=== PATIENT | female | born 1975 | race Caucasian/White ===

== ENCOUNTER 2019-09-17 17:12 | Inpatient (IN) | payer MEDICAID, SELFPAY ==
[2019-09-17 17:16] VITALS: BP 131/75; PULSE 90; RESP 16; TEMP 36.8; O2SAT 100; BMI 47.0
--- NOTE | 2019-09-17 17:43 | W.ED.PSYCH ---
HPI - Psych General: Chief Complaint: Psychiatric Symptoms Stated Complaint: suicide Time Seen by Provider: 09/17/19 17:43 Source: patient History of Present Illness: HPI Narrative: 44 yo Female presents to ED with complaint of psychiatric symptoms and suicidal ideation. MD complaint: suicidal ideation PFSH ED PFSH: Statuses (acute, chronic, etc) shown below reflect problem list status as previously entered and may not be historically accurate Social History Smoking and tobacco status: current every day smoker Discharge Plan Discharge Prescriptions: No Action No Known Home Medications RF: 0 Coding Level of Care Code ED Geological Aide for Cynthia Cooper
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
[2019-09-17 17:59] LABS: Basophils % 0.4 %; Eosinophils # 0.3 10^3/uL (0.0-0.8); Eosinophils % 2.8 %; Hematocrit 38.9 % (37.0-47.0); Hemoglobin 12.4 g/dL (11.5-15.3); Lymphocytes # 3.8 10^3/uL (0.8-4.8); Lymphocytes % 40.4 %; Mean Corpuscular HGB Conc 31.9 g/dL (30.0-36.0); Mean Corpuscular Hemoglobin 29.4 pg (28.0-34.0); Mean Corpuscular Volume 92.2 fL (81-99); Mean Platelet Volume 9.5 fL (7.4-10.4); Monocytes # 0.5 10^3/uL (0.2-0.9); Monocytes % 5.1 %; Neutrophils # 4.8 10^3/uL (1.8-7.7); Neutrophils % 50.8 %; Nucleated Red Blood Cells % 0 %; Platelet Count 315 10^3/cmm (130-400); Red Blood Count 4.22 10^6/uL (4.1-5.3); Red Cell Distribution Width 13.7 % (12.1-15.1); White Blood Count 9.5 10^3/uL (4.0-10.0)
[2019-09-17 18:35] LABS: Alanine Aminotransferase 17 U/L (0-33); Albumin Level 4.2 g/dL (3.5-5.2); Alkaline Phosphatase 93 IU/L (35-105); Anion Gap 13.6 (5-19); Aspartate Amino Transferase 24 U/L (0-32); Blood Urea Nitrogen 11 mg/dL (6-20); Calcium 9.5 mg/Dl (8.6-10.0); Carbon Dioxide 26 mmol/L (22-29); Chloride 98 mmol/L (98-107); Globulin 3.4 g/dL (1.3-4.6); Glomerular Filtration Rate 109.6 mL/min (90-130); Glucose 118 mg/dL (74-109); Potassium 3.6 mmol/L (3.5-5.1); Salicylate 1.1 mg/dL (3-10); Sodium 134 mmol/L (136-145); Thyroid Stimulating Hormone 1.28 uIU/mL (0.27-4.20); Total Bilirubin 0.3 mg/dL (0.15-1.2); Total Protein 7.6 g/dL (6.6-8.7)
[2019-09-17 18:39] LABS: Acetaminophen < 5.0 ug/mL (10-30); Alcohol Level < 10 mg/dL (0-10)
[2019-09-17 18:44] LABS: HCG Qualitative Urine. Negative (Negative)
[2019-09-17 18:58] LABS: Bilirubin Urine 1+ (NEGATIVE); Blood Urine 2+ (Negative); Glucose Urine UA Norm (Normal); Ketones Urine 1+ (Negative); Nitrate Urine Negative (Negative); Protein Urine Trace (Negative); Specific Gravity, Urine 1.025 (1.005-1.030); Sulfosalicylic Acid Urine Negative; Urine Appearance Cloudy (CLEAR); Urine Color Yellow (Yellow); pH Urine 5 (5-7)
[2019-09-17 18:59] LABS: Add Urine Culture? No; Add Urine Microscopic? YES; Bacteria Urine 1+; Leukocyte Esterase Urine Negative (Negative); Mucus Urine 1+; RBC Urine 0-4 /hpf (0-2); Squamous Epithelial Cell Urine 25-40 (0-5); Urobilinogen Urine 1 mg/dL (Negative)
[2019-09-17 19:06] LABS: Amphetamines Screen Urine Negative (Negative); Barbiturates Screen Urine Negative (Negative); Benzodiazepines Screen Urine Negative (Negative); Cocaine Screen Urine Negative (Negative); Opiate Screen Urine Negative (Negative); PCP Screen Urine Negative (Negative); THC Screen Urine Positive (Negative)
[2019-09-17 19:39] VITALS: BP 128/88; PULSE 61; RESP 18; O2SAT 99
[2019-09-17 20:50] VITALS: BP 107/86; PULSE 60; RESP 17; TEMP 36.7; O2SAT 100
[2019-09-17 20:58] VITALS: BP 124/85; PULSE 67; RESP 21; TEMP 36.9; O2SAT 98
[2019-09-17 21:32] VITALS: BP 124/85; PULSE 67; RESP 21; TEMP 36.9; O2SAT 98
[2019-09-18 06:00] VITALS: BP 101/57; PULSE 65; RESP 18; TEMP 36.8; O2SAT 97
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
[2019-09-18 12:43] VITALS: BP 122/83; PULSE 60; RESP 19; TEMP 36.8; O2SAT 97
[2019-09-18] MEDS: fluoxetine 20 mg Capsule PO (15:10)
[2019-09-18] MEDS: lamoTRIgine 25 mg Tablet PO (15:10)
[2019-09-18 19:39] VITALS: BP 110/68; PULSE 55; RESP 20; TEMP 36.6; O2SAT 100
[2019-09-18] MEDS: nicotine 21 mg Patch 1 PATCH TRANSDERMA (20:49)
[2019-09-19 06:00] VITALS: BP 143/82; PULSE 80; RESP 21; TEMP 36.5; O2SAT 97
[2019-09-19] MEDS: fluoxetine 20 mg Capsule PO (09:07)
[2019-09-19] MEDS: lamoTRIgine 25 mg Tablet PO (09:07)
--- NOTE | 2019-09-19 13:26 | P.CONIM_ITS ---
Providers/Reason For Consult Consulting Physican/Specialty*: General medical service Reason for Consult*: Goiter Attending Physician: Daren Bosch MD Primary Care Provider: Hanna Church History of Present Illness History of Present Illness Misa Cohen is a 44 year old female who was admitted to the [facility] unit for suicidal ideation. General medical team was consulted for goiters thyroid. Patient states that she has a history of enlarged thyroid, states that she had a work-up at [facility], this was told that she had a large right thyroid, they stated that they would monitor it, and if it enlarges they would advocate for a thyroidectomy. Patient denies any chest pain or palpitations. Denies any skin changes. Denies any diarrhea or constipation. Denies any hair loss. Denies any edema. Denies any vision changes. Denies any weight changes. Denies any personal family history of hypo-or hyperthyroidism. Denies any personal history of diabetes, hypertension, hyperlipidemia, CAD, strokes. Review of Systems Const: Denies: fever or chills Card: Denies: chest pain, palpitations, irregular heart rhythm, lightheadedness or syncope Resp: Denies: shortness of breath or productive cough GI: Denies: abdominal pain, nausea, vomiting, diarrhea or constipation : Denies: flank pain, difficulty urinating, urinary frequency or urinary urgency Musc: Denies: neck pain or back pain Skin/Breast: Denies: rash Neuro: Denies: headache, numbness in extremities or weakness in extremities Psych: Reports: depression; Denies: anxiety Endo: Denies: excessive urination or excessive thirst Meds/Allergies Home Medications and Allergies Home Medications Medication Instructions Recorded Confirmed Type Anti-Diarrheal (loperamide) See Rx Instructions .ROUTE .COMPLEX 09/17/19 09/17/19 History albuterol sulfate 2 puff INHALATION Q4H PRN 09/17/19 09/17/19 History ibuprofen 800 mg PO TID PRN 09/17/19 09/17/19 History Allergies Allergy/AdvReac Type Severity Reaction Status Date / Time oxycodone [From OxyContin] Allergy ADR-Itching Verified 09/17/19 17:28 Current Medications Current Medications Generic Name Dose Route Start Last Admin Trade Name Freq PRN Reason Stop Dose Admin Fluoxetine HCl 20 mg 09/18/19 15:00 09/19/19 09:07 Prozac PO 20 mg DAILY JOE Administration Lamotrigine 25 mg 09/18/19 15:00 09/19/19 09:07 Lamictal PO 25 mg DAILY JOE Administration Nicotine 1 patch 09/17/19 20:58 09/18/19 20:49 Nicoderm 21 Mg Patch TRANSDERMA 1 patch DAILY PRN Administration NICOTINE WITHDRAWAL PFSH Acute PFSH: Statuses (acute, chronic, etc) shown below reflect problem list status as previously entered and may not be historically accurate Medical History (Updated 09/19/19 @ 13:33 by Javier Odonnell MD) Goiter diffuse (Acute) Surgical History (Updated 09/19/19 @ 13:30 by Javier Odonnell MD) History of partial hysterectomy (Acute) Family History (Updated 09/19/19 @ 13:30 by Javier Odonnell MD) Other Diabetes Social History (Updated 09/19/19 @ 13:31 by Javier Odonnell MD) Smoking and tobacco status: current every day smoker Alcohol intake: current Substance/Drug Use: never Vitals/I&O/Wt Last Vital Signs Temp 97.7 F 09/19/19 06:00 Pulse 80 09/19/19 06:00 Resp 21 H 09/19/19 06:00 BP 143/82 09/19/19 06:00 Pulse Ox 97 09/19/19 06:00 Weight last 48 hrs Weight 115.122 kg Weight 115.122 kg Weight 115.122 kg Weight 136.078 kg Physical Exam Const: COMMON NORMALS: no apparent distress, oriented x3 and healthy appearing HENMT: COMMON NORMALS: normocephalic HEAD & SCALP: normocephalic Eye: COMMON NORMALS: PERRL and EOMs intact bilaterally PUPIL: Yes PERRL Neck/C-Spine: COMMON NORMALS: no JVD THYROID: diffusely enlarged (Right thyroid is more diffusely larger than the left), no nodules, nontender and no warm Lymph: LYMPHATIC: no lymphadenopathy noted Chest: COMMONS NORMALS: inspection of chest normal Resp: COMMON NORMALS: normal respiratory effort, no retractions, no use of accessory muscles and clear to auscultation bilaterally AUSCULTATION: clear to auscultation bilaterally Cardio: COMMON NORMALS: no JVD, S1 normal heart sound and S2 normal heart sound HEART SOUNDS: S1 normal and S2 normal GI: COMMON NORMALS: normal to inspection, nondistended, normoactive bowel sounds, soft to palpation, non-tender and no hepatosplenomegaly PALPATION: Yes soft and Yes no hepatosplenomegaly : COMMON NORMALS: Yes no CVA tenderness BLADDER/KIDNEY EXAM: Yes no CVA tenderness Back/Pelvis: COMMON NORMALS: no CVA tenderness Extremity: COMMON NORMALS: normal to inspection, normal capillary refill, no clubbing, cyanosis or edema and no pedal edema Neuro: COMMON NORMALS: oriented x3, CN's II-XII intact bilaterally and no focal motor deficits Psych: COMMON NORMALS: mental status grossly normal, thought process normal, cooperative, affect normal and activity/motor behavior normal THOUGHT PROCESS: normal thought process Skin: COMMON NORMALS: no rashes or lesions noted GENERAL SKIN EXAM: no rashes or lesions noted A&P Assessment and plan (1) Cluster B personality disorder in adult: Status: Acute Code(s): F60.9 - Personality disorder, unspecified (2) Bipolar affective, depress, unspec: Status: Acute Code(s): F31.30 - Bipolar disorder, current episode depressed, mild or moderate severity, unspecified (3) Adjustment disorder with mixed disturbance of emotions and conduct: Status: Acute Code(s): F43.25 - Adjustment disorder with mixed disturbance of emotions and conduct (4) Suicide attempt: Status: Acute Code(s): T14.91XA - Suicide attempt, initial encounter (5) Suicidal ideation: Status: Acute Code(s): R45.851 - Suicidal ideations (6) Goiter diffuse: -We will do thyroid ultrasound, TSH, thyroid studies Status: Acute Code(s): E04.9 - Nontoxic goiter, unspecified Consult Attestations Medical Necessity Statement: Patient requires hospitalization, for suicidal ideation, Coding Level of Care Code Acute Conventional Mortgage Underwriter for Chg Fwd Diagnoses Cluster B personality disorder in adult F60.9 Bipolar affective, depress, unspec F31.30 Adjustment disorder with mixed disturbance of emotions and conduct F43.25 Suicide attempt T14.91XA Suicidal ideation R45.851 Goiter diffuse E04.9
--- NOTE | 2019-09-19 13:34 | USR_ITS ---
PROCEDURE INFORMATION: Exam: US Soft Tissue Head and Neck, Soft Tissue Exam date and time: 09/19/2019 3:02 PM Age: 44 years old Clinical indication: Condition or disease; Thyroid disorder; Goiter, non-toxic; Type not specified; Additional info: Goiter thyroid TECHNIQUE: Imaging protocol: Real-time ultrasound scan of the head and neck with image documentation. Exam focused on the soft tissue in the region of clinical concern. COMPARISON: US thyroid [id number] 10/14/2016 3:26 PM FINDINGS: Right thyroid lobe: The right thyroid lobe measures 1.7 x 5.2 x 1.7 cm. There is a 5.9 x 4.6 x 5.0 mm mixed echogenicity nodule in the mid right thyroid lobe. This nodular density does appear smaller than the prior exam where it measured 6.8 x 8.0 x 7.6 mm. This nodule is almost completely solid. It is hyperechoic and wider than tall. Its margins are ill-defined. A few small microcalcifications are noted in the nodule. This right thyroid nodule TIRADS category 4 moderately suspicious nodule. Otherwise the remainder of the thyroid gland is mildly heterogeneous but there are no new or enlarging nodules. No fluid collection in the soft tissues. No adenopathy. Left thyroid lobe: The left thyroid lobe measures 1.6 x 4.5 x 2.0 cm. There is a 7.6 x 3.6 x 5.1 mm hyperechoic nodule in the left thyroid lobe. Is unchanged in size as compared to the prior exam where it measured 7.3 x 2.9 x 5.5 mm. This left thyroid nodule is solid and hypoechoic. It is wider than tall. It is smoothly marginated. No calcifications are identified. This nodule in the mid left thyroid lobe is a TIRADS category 3 nodule which is mildly suspicious. Follow-up exam in 3 years and 5 years is recommended. Isthmus: The thyroid isthmus measures 2.3 mm and is unremarkable. Lymph nodes: See Right Thyroid Lobe Finding. Soft tissues: See Right Thyroid Lobe Finding. US/US thyroid [id number] IMPRESSION: 1. There is a slightly smaller right thyroid nodule is a TIRADS category 4 moderately suspicious nodule. Follow-up ultrasound at 2, 3 and 5 years is recommended. 2. There is a unchanged size nodule in the mid left thyroid lobe is a TIRADS category 3 nodule which is mildly suspicious. Follow-up exam in 3 years and 5 years is recommended. 3. No new or enlarging nodule.
[2019-09-19 13:49] VITALS: BP 126/87; PULSE 99; RESP 20; TEMP 36.8; O2SAT 98
[2019-09-19 15:12] LABS: Free T4 Free Thyroxine 1.35 ng/dL (0.82-1.77); Thyroid Stimulating Hormone 0.63 uIU/mL (0.27-4.20)
--- NOTE | 2019-09-19 16:33 | PM.NPN ---
Subjective NPU Subjective: Interval history: December presents today reporting that she is feeling better on the medication. Her daughters came and visited her which made her feel really happy. She is starting to feel optimistic about coming to the unit and that it was the best decision. We reviewed the plan for titrating her Lamictal including the risk for Ashley-Cristian syndrome we discussed the risks benefits alternatives of proceeding with the medication as discussed and she understood and agreed to proceed as is documented in this note. Mental Status Exam MSE Comments: This is an obese versus morbidly obese white female with adequate dressing, grooming and contact with poor dentition. Cooperative with exam in mild distress. Speech was decreased rate and volume. Mood described as better, affect subdued. Thought process organized. Thought content: Patient denied any suicidal or homicidal ideation, there were no delusions reported noted, she denied any auditory or visual hallucinations. Attention and concentration were intact and memory appeared reliable but none were formally tested. She is alert and oriented ?3. Insight and judgment are limited. Vitals/I&O/Wt Last Vital Signs Temp 98.2 F 09/19/19 13:49 Pulse 99 09/19/19 13:49 Resp 20 H 09/19/19 13:49 BP 126/87 09/19/19 13:49 Pulse Ox 98 09/19/19 13:49 Weight last 48 hrs Weight 115.122 kg Weight 115.122 kg Weight 115.122 kg Weight 136.078 kg A&P Additional A&P Information Additional A&P Information: This is a 44-year-old white female with a history of untreated mood disorder who presents after a significant relational events with a likely reactive response with a history of possible bipolar disorder, cluster B traits, and a medical comorbidity of thyroid disease. 1. Continue current medication. 2. Encourage individual group and milieu therapy. 3. Continue every 15 minute checks for safety. 4. Work with social work to get her reconnected to outpatient services. Involuntary Hold Information 96 Hour Hold: 96 Hour Involuntary Admission: No Attestations NPU Medical Necessity Statement*: Inpatient hospitalization is medically necessary and the clinically appropriate intervention at this time. We will initiate and monitor medications as indicated and titrate to effect. Likely length of stay 1-3 days. Coding Level of Care Code Acute Biodiesel Plant Manager for Cynthia Cooper
[2019-09-19 20:40] VITALS: BP 121/84; PULSE 69; RESP 19; TEMP 36.8; O2SAT 98
[2019-09-19] MEDS: trazodone 50 mg Tablet PO (21:13)
[2019-09-20 05:59] VITALS: BP 169/102; PULSE 59; RESP 20; TEMP 36.4; O2SAT 97
[2019-09-20] MEDS: acetaminophen 325 mg Tablet 650 MG PO (06:18)
[2019-09-20] MEDS: lamoTRIgine 25 mg Tablet PO (09:06)
[2019-09-20] MEDS: fluoxetine 20 mg Capsule PO (09:06)
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
[2019-09-20 13:54] VITALS: BP 107/86; PULSE 59; RESP 20; TEMP 36.4; O2SAT 97
--- NOTE | 2019-09-22 16:13 | PC.SOCIAL ---
Per Dr Odonnell patient needs referral to ENT for Thyroid nodules. Sent referral to Dr Perkins office. Called patient and was not able to reach her on the numbers listed on demographic sheet but contact gave the number [phone]. Called this number and updated patient about referral and they will be calling her. She was agreeable that the number above be given to the clinic. No questions voiced at the time of call.
== END 2019-09-20 14:12 | disposition home or self-care (01) | DRG 882 ==
LOC: ER 18:59 → NP 20:32
PROVIDERS: Family Medicine; Admitting Provider Psychiatry & Neurology Psychiatry; Emergency Provider Physician Assistant; Family Provider Nurse Practitioner Family; PCP Nurse Practitioner; Visit Provider Psychiatry & Neurology Psychiatry
DX: F43.25 Adjustment disorder with mixed disturbance of emotions and conduct (principal); R45.851 Suicidal ideations; F31.30 Bipolar disorder, current episode depressed, mild or moderate severity, unspecified; F17.210 Nicotine dependence, cigarettes, uncomplicated; Z91.5 Personal history of self-harm; E04.9 Nontoxic goiter, unspecified
CPT/HCPCS: 36415; 76536; 80053; 80306; 80307; 81003; 81025; 84439; 84443; 84481; 85025; 99284

== ENCOUNTER → 2019-10-18 14:11 | Outpatient (BNVA) | payer MEDICAID, SELFPAY | PROVIDERS: Family Provider Nurse Practitioner Family; PCP Nurse Practitioner; Visit Provider Otolaryngology | DX: E04.1 Nontoxic single thyroid nodule (principal); R49.0 Dysphonia; R13.10 Dysphagia, unspecified; F17.210 Nicotine dependence, cigarettes, uncomplicated | CPT/HCPCS: 99203; 99214 ==

== ENCOUNTER → 2019-10-20 15:19 | Outpatient (BNVA) | payer MEDICAID, SELFPAY | PROVIDERS: Family Provider Nurse Practitioner Family; PCP Nurse Practitioner; Visit Provider Nurse Practitioner Family | DX: Z23 Encounter for immunization (principal); E04.9 Nontoxic goiter, unspecified; Z13.6 Encounter for screening for cardiovascular disorders; F41.9 Anxiety disorder, unspecified; M25.522 Pain in left elbow; F17.200 Nicotine dependence, unspecified, uncomplicated; J98.01 Acute bronchospasm; H65.193 Other acute nonsuppurative otitis media, bilateral; F32.9 Major depressive disorder, single episode, unspecified; H65.93 Unspecified nonsuppurative otitis media, bilateral | CPT/HCPCS: 80053; 80061; 84443; 85025 ==

== ENCOUNTER → 2019-10-29 09:13 | Outpatient (BNVA) | payer MEDICAID, SELFPAY | PROVIDERS: Family Provider Nurse Practitioner Family; PCP Nurse Practitioner; Visit Provider Otolaryngology | DX: E04.9 Nontoxic goiter, unspecified (principal); E04.1 Nontoxic single thyroid nodule; F17.210 Nicotine dependence, cigarettes, uncomplicated | CPT/HCPCS: 99213; 99214 ==

== ENCOUNTER 2019-11-17 08:15 | Day surgery (SDC) | payer MEDICAID, SELFPAY ==
[2019-11-16 10:35] VITALS: BMI 36.6
[2019-11-17] VITALS (11 sets, daily range): BP systolic 105–146; BP diastolic 59–87; PULSE 62–98; RESP 10–20; TEMP 36.3–36.9; O2SAT 94–97
--- NOTE | 2019-11-17 09:47 | P.ANESASSM_ITS ---
Pre-Anesthetic Assessment Pre-Anesthetic Assessment: Height/Weight: Height 1.7 m Weight 106.141 kg Temp Pulse Resp BP Pulse Ox 97.3 F L 62 18 146/77 97 11/17/19 09:43 11/17/19 09:43 11/17/19 09:43 11/17/19 09:43 11/17/19 09:43 Preop Diagnosis: thyroid mass Proposed Procedure: Operation Date: 11/17/19 10:15 Proposed Procedures p Rt thyroid lobectomy 15577 E04.9/E04.1(Right) - Nithin Perkins MD Familial anesthetic complications: None Was Beta Dania taken within 24 hours: N/A Last intake: Intake Last Liquid Date 11/16/19 Last Liquid Time 23:30 Last Solid Date 11/16/19 Last Solid Time 23:30 Social: Social History: Tobacco and No alcohol Packs per day: 1.5 ppd Exam: Pre-Anes Outpt Exam: alert, oriented x 3, clear to auscultation bilaterally and regular rate & rhythm Airway: Cervical ROM: WNL MP: 1 Additional comments: edentulous Pulmonary: Comments: hx of bronchitis - last time a couple months ago allergies CV/HEM: CV/HEM: HTN : : None reported Hepatic: Hepatic: None reported GI: GI: GERD Metabolic: Metabolic: Thyroid Musc/skel: Musc/skel: Fibromyalgia Neuropsych: Neuropsych: None reported Anesthetic Plan: ASA status: 2 Anesthesia: General Risk of > 500 ml blood loss (7ml/kg in children): No PFSH Anesthesia PFSH: Medical History Anxiety and depression Goiter diffuse Smoker Thyroid Nodule Surgical History (Updated 11/16/19 @ 10:31 by Katelyn L [employer]) History of partial hysterectomy Family History (Updated 10/29/19 @ 09:32 by Marilyn Green LPN) Other Cancer Diabetes Social History (Updated 11/16/19 @ 10:32 by Katelyn Russell) Smoking and tobacco status: current every day smoker Alcohol intake: current Housing: Manufactured/Mobile home Marital status: Number of children: 2 Number of grandchildren: 1 Highest education level completed: 8th Grade service: No Current occupational status: disabled History of recent travel: No Data Anesthesia Cardiac Studies: No Data to Display
[2019-11-17] MEDS: sodium chloride 0.9% 1,000 ML 30 ML IV (09:55)
--- NOTE | 2019-11-17 11:02 | W.PM.OPSUD ---
Surgery/Procedure H&P Update DATE OF PROCEDURE: November 17, 2019 DATE H&P PERFORMED: 10/29/19 H&P UPDATE INFORMATION: I have reviewed H&P completed within last 30 days, I have examined patient prior to procedure and No changes to prior documentation PREOP DIAGNOSIS: thyroid mass PLANNED PROCEDURE: Operation Date: 11/17/19 10:15 Proposed Procedures p Rt thyroid lobectomy 34591 E04.9/E04.1(Right) - Nithin Perkins MD
--- NOTE | 2019-11-17 11:54 | P.OP_ITS ---
Operative Report Date of procedure: November 17, 2019 Pre-op Diagnosis: thyroid mass Post-op diagnosis: same Procedure Done: Right thyroid lobectomy Specimens removed/disposition: Right thyroid lobe Surgeon: Nithin Perkins Anesthesia: General Complications: none Condition: stable Disposition: PACU Brief History: Misa is a 44-year-old female with a thyroid nodule that upon ultrasound had a right TIRADS category 4 nodule. I discussed the options with the patient and she wishes to proceed with surgery. Procedure: The patient was taken to the operating room and under satisfactory general endotracheal anesthesia the neck was prepped draped and injected. A 2 cm incision was made in a relaxed skin tension line at the level of the isthmus. Dissection was carried down through the anterior layer of deep cervical fascia identifying and retracting the strap musculature laterally. The right thyroid lobe was identified. Inferiorly, the recurrent laryngeal nerve was identified. Superiorly the superior thyroid vascular pedicle was identified and ligated and the middle thyroid vein was ligated. Dissection was carried laterally delivering the thyroid into the wound. The recurrent laryngeal nerve was preserved the superior parathyroid was identified the inferior prior parathyroid was not identified. Hemostasis was obtained throughout with combination of harmonic scalpel, bipolar cautery and needlepoint electrocautery. Zuhair was placed in the wound bed and the incision was closed in layers in interrupted fashion with 3-0 chromic and 5-0 undyed Vicryl subcuticular. A dressing was applied the patient was allowed awaken and taken to the recovery room where she was observed. During the observation time postoperative care instructions and couns eling were given to the patient and her friend. Once both parties verbalized understanding of all instructions and once the patient met discharge criteria she was discharged in satisfactory and stable condition.
[2019-11-17] MEDS: neomycin-poly-bacitracin oint 28 gm 1 APPLIC TOPICAL (12:54)
== END 2019-11-17 14:36 | disposition home or self-care (01) ==
PROVIDERS: Family Provider Nurse Practitioner Family; PCP Nurse Practitioner; Visit Provider Otolaryngology
PROC: (CPT 60220; principal; 2019-11-17 10:30)
DX: E04.1 Nontoxic single thyroid nodule (principal); F17.210 Nicotine dependence, cigarettes, uncomplicated; I10 Essential (primary) hypertension; K21.9 Gastro-esophageal reflux disease without esophagitis; M79.7 Fibromyalgia
CPT/HCPCS: 60220; 12345; 88307; J1100; J2001; J2405; J2704; J2710; J3010; J3490; J3535; J7030

== ENCOUNTER → 2019-11-18 09:37 | Outpatient (BNVA) | payer MEDICAID, SELFPAY | PROVIDERS: Family Provider Nurse Practitioner Family; PCP Nurse Practitioner; Visit Provider Otolaryngology | DX: E04.1 Nontoxic single thyroid nodule (principal); R51 Headache | CPT/HCPCS: 99024; 99214 ==

== ENCOUNTER → 2019-11-25 10:39 | Outpatient (BNVA) | payer MEDICAID, SELFPAY | PROVIDERS: Family Provider Nurse Practitioner Family; PCP Nurse Practitioner; Visit Provider Otolaryngology | DX: G43.711 Chronic migraine without aura, intractable, with status migrainosus (principal); R56.9 Unspecified convulsions; F17.210 Nicotine dependence, cigarettes, uncomplicated; E04.1 Nontoxic single thyroid nodule | CPT/HCPCS: 99024; 99204; 99214 ==

== ENCOUNTER → 2019-11-29 07:56 | Outpatient (BNVA) | payer MEDICAID, SELFPAY | PROVIDERS: Family Provider Nurse Practitioner Family; PCP Nurse Practitioner; Visit Provider Specialist | DX: R56.9 Unspecified convulsions (principal); F17.210 Nicotine dependence, cigarettes, uncomplicated | CPT/HCPCS: 95816 ==

== ENCOUNTER → 2020-02-14 15:02 | Outpatient (BNVA) | payer MEDICAID, SELFPAY | PROVIDERS: Family Provider Nurse Practitioner Family; PCP Nurse Practitioner; Visit Provider Specialist | DX: G43.711 Chronic migraine without aura, intractable, with status migrainosus (principal); F17.210 Nicotine dependence, cigarettes, uncomplicated | CPT/HCPCS: 99213 ==

== ENCOUNTER 2020-03-28 13:31 | Outpatient (CLI) | payer OTHER, SELFPAY | END 2020-03-28 13:32 | disposition home or self-care (01) | LOC: RT 13:34 | PROVIDERS: PCP Nurse Practitioner; Visit Provider Dermatology | DX: J44.9 Chronic obstructive pulmonary disease, unspecified (principal) | CPT/HCPCS: 94060 ==

== ENCOUNTER → 2020-03-30 15:58 | Outpatient (BNVA) | payer MEDICAID, SELFPAY | PROVIDERS: PCP Nurse Practitioner; Visit Provider Nurse Practitioner Family | DX: M25.561 Pain in right knee (principal); M25.562 Pain in left knee; M25.571 Pain in right ankle and joints of right foot | CPT/HCPCS: 73560; 73610 ==

== ENCOUNTER → 2020-04-10 10:30 | Outpatient (BNVA) | payer MEDICAID, SELFPAY | PROVIDERS: PCP Nurse Practitioner; Visit Provider Family Medicine | DX: M25.561 Pain in right knee (principal); M25.562 Pain in left knee; E04.9 Nontoxic goiter, unspecified; K58.0 Irritable bowel syndrome with diarrhea | CPT/HCPCS: 84443; 84550; 85651; 86431 ==

== ENCOUNTER → 2020-05-08 15:15 | Outpatient (BNVA) | payer MEDICAID, SELFPAY | PROVIDERS: PCP Nurse Practitioner; Referring Provider Family Medicine; Visit Provider Specialist | DX: M25.561 Pain in right knee (principal); M25.562 Pain in left knee | CPT/HCPCS: 73565 ==

== ENCOUNTER 2020-05-24 12:38 | Outpatient (CLI) | payer MEDICAID, SELFPAY ==
--- NOTE | 2020-05-24 13:00 | MR_ITS ---
WS: [id number] MRI RIGHT KNEE NONCONTRAST TECHNIQUE: Axial PD, coronal PD fat sat, coronal PD, sagittal PD, and sagittal PD fat-sat images obta ined. CLINICAL INFORMATION: M25.561 Pain in right knee COMPARISON: None. FINDINGS: Distal quadriceps and patella tendons are intact. Hypertrophic patella. Normal anterior and posterior cruciate ligaments. Normal lateral meniscus. Tiny amount of chronic appearing intrasubstance signal abnormality along the posterior horn medial meniscus. No acute appearing meniscal tears. Moderate chondromalacia patella. No subchondral edema. Medial and lateral collateral ligaments are in tact. Normal popliteal fossa. Moderate chondromalacia involving the medial and lateral joint compartm ents. MR/MR knee RT wo con* [id number] IMPRESSION: 1. Anterior and posterior cruciate ligaments are intact. 2. Chronic intrasubstance signal abnormality involving the posterior horn medi al meniscus. No acute appearing meniscal tears. 3. Moderate chondromalacia patella. 4. Moderate chondromalacia involving the medial and lateral joint compartments with joint space narrowing. 5. No subchondral edema.
== END 2020-05-24 12:39 | disposition home or self-care (01) ==
LOC: RADSHAW 12:44
PROVIDERS: PCP Family Medicine; Visit Provider Specialist
DX: M25.561 Pain in right knee (principal); M22.41 Chondromalacia patellae, right knee
CPT/HCPCS: 73721

== ENCOUNTER 2020-06-16 12:44 | Outpatient (CLI) | payer MEDICAID, SELFPAY ==
--- NOTE | 2020-06-16 12:49 | XR_ITS ---
WS: [id number] Lumbar spine, AP, both obliques, lateral views in neutral, flexion and extension, and L5-S1 spot view . Clinical Data: chronic back pain Comparison: Lumbar spine, 05/13/2018. Findings: No compression fractures or subluxation is seen. No disc space narrowing is seen. The transverse proc esses and SI joints are normal. The oblique films show no spondylolysis. The flexion and extension films demonstrate no subluxation o r limitation of motion. Minimal anterior osteoarthritic spurring is seen at L1, L2 and L3. There are clips in the right upper quadrant from a cholecystectomy. XR/XR lumbar spine 6V w f/e [id number] Impression: 1. Minimal osteoarthritis at L1, L2 and L3. 2. Negative for spondylolysis or spondylolisthesis. 3. No limitation of motion or subluxation on flexion or extension.
== END 2020-06-16 12:45 | disposition home or self-care (01) ==
LOC: RAD 12:47
PROVIDERS: PCP Family Medicine; Visit Provider Family Medicine
DX: G89.29 Other chronic pain (principal); M47.816 Spondylosis without myelopathy or radiculopathy, lumbar region
CPT/HCPCS: 72114

== ENCOUNTER → 2020-07-09 16:55 | Outpatient (BNVA) | payer MEDICAID, SELFPAY | PROVIDERS: PCP Family Medicine; Visit Provider Nurse Practitioner Family | DX: M79.641 Pain in right hand (principal) | CPT/HCPCS: 73130 ==

== ENCOUNTER 2020-07-13 16:42 | Emergency (ER) | payer MEDICAID, SELFPAY ==
[2020-07-13 16:53] VITALS: BP 136/90; PULSE 79; RESP 18; TEMP 36.7; O2SAT 98; BMI 35.8
--- NOTE | 2020-07-13 17:09 | ECG_ITS ---
[facility] Test Date: 2020-07-13 Pat Name: Misa Cohen Department: Room: Gender: Female Orthodontist Assistant: : 1975 Requested By: Vijay Parsons Order Number: [id number] Flo MD: PAPI BUSH Measurements Intervals [place] Rate: 72 P: 36 MS: 132 QRS: 42 QRSD: 88 T: 52 QT: 364 QTc: 401 Interpretive Statements SINUS RHYTHM WITH SINUS ARRHYTHMIA Compared to ECG 07/08/2018 19:48:54 No significant changes Electronically Signed On 07-13-2020 21:03:15 CDT by PAPI BUSH [email or web address]
--- NOTE | 2020-07-13 17:09 | XR_ITS ---
WS: [id number] Exam: XR chest 1V portable [id number] Date/Time of Exam: 07/13/2020 5:23 PM Reason For Exam: cp Comparison 08/30/2019. The lungs are clear and fully inflated. Normal cardiomediastinal structures and regional bony element s. XR/XR chest 1V portable [id number] IMPRESSION: 1. No acute cardiopulmonary finding.
--- NOTE | 2020-07-13 17:35 | ED_ITS ---
HPI - Chest Pain General: Chief Complaint: Chest Pain Stated Complaint: chest pain Time Seen by Provider: 07/13/20 17:19 Source: patient Mode of arrival: ambulatory Limitations: no limitations History of Present Illness: MD complaint: chest pain Onset (ago): hour(s) (3) Timing of current episode: constant Prior episodes: No Onset: during rest Pain location: substernal Pain radiation: back Severity: moderate Quality: sharp Relieving factors: nothing (nothing tried) Exacerbating factors: nothing Associated symptoms: Deny abdominal pain, diaphoresis, dyspnea, fever(s), leg edema, nausea, palpitations, sense of impending doom, syncope or vomiting Treatment prior to arrival: none Review of Systems General: Reports: 10 or more systems reviewed and unremarkable except in HPI and below Const: Denies: fever(s) or diaphoresis Eyes: Denies: change in vision or blurry vision ENMT: Denies: throat pain, enlarged tonsils, odynophagia, hoarseness, mouth pain or swelling of lips/tongue Card: Denies: palpitations or syncope Resp: Denies: dyspnea GI: Denies: abdominal pain, nausea or vomiting : Denies: flank pain, difficulty voiding, dysuria, urinary frequency, urinary urgency or urinary hesitancy Musc: Denies: neck pain, back pain or extremity swelling Skin/Breast: Denies: rash, pruritus or erythema Neuro: Denies: headache(s), numbness in extremities or weakness in extremities Endo: Denies: polyuria, polydipsia or tired all the time PFSH ED PFSH: Medical History (Reviewed 07/13/20 @ 17:40 by [place] Cuevas MD, [facility] [place] Anxiety and depression Goiter diffuse Headache Seizure Smoker Thyroid Nodule Surgical History (Reviewed 07/13/20 @ 17:40 by Will Cuevas MD, [facility] [place] History of cholecystectomy History of partial hysterectomy History of thyroidectomy Family History (Reviewed 07/13/20 @ 17:40 by Will Cuevas MD, [facility] [place] Other Cancer Diabetes Stroke Social History (Reviewed 07/13/20 @ 17:40 by Will Cuevas MD, [facility] [place] Smoking and tobacco status: current every day smoker cigarettes Packs smoked per day: 2 Years cigarettes smoked: 35 Second hand smoke exposure: No Alcohol intake: current Alcohol intake frequency: holidays/special occasions only Lives independently: Yes Housing: Manufactured/Mobile home Marital status: Number of children: 2 Number of grandchildren: 1 Highest education level completed: 8th Grade service: No Current occupational status: disabled History of recent travel: No Current gender identity: Female Physical Exam Const: COMMON NORMALS: no acute distress, average body habitus, patient oriented x3, no limitations, healthy appearing, alert and well nourished HENMT: COMMON NORMALS: normocephalic, atraumatic and moist oral mucous membranes HEAD & SCALP: normocephalic and atraumatic Neck/C-Spine: COMMON NORMALS: no meningeal signs and no JVD Chest: COMMONS NORMALS: normal inspection of the chest CHEST: Yes tenderness sternum Resp: COMMON NORMALS: normal respiratory effort, No retractions, No use of accessory muscles, clear to auscultation bilaterally and percussion normal AUSCULTATION: clear to auscultation bilaterally PERCUSSION: percussion normal Cardio: COMMON NORMALS: no JVD, regular rate, regular rhythm, S1 normal heart sound present, S2 normal heart sound present, No gallops present (Cardio), No clicks present (Cardio), No murmurs present (Cardio), No rub (Cardio) and Peripheral pulses 2+ throughout RATE: regular rate RHYTHM: regular rhythm HEART SOUNDS: S1 normal heart sound present and S2 normal heart sound present PERIPHERAL PULSES: Peripheral pulses 2+ throughout GI: COMMON NORMALS: Normal to inspection, nondistended, normoactive bowel sounds present, Soft to palpation, No hepatosplenomegaly present, no masses and no bruits PALPATION: Yes Soft to palpation, Yes Tenderness to palpation present (GI) (epigastric) and Yes No hepatosplenomegaly present Extremity: COMMON NORMALS: normal to inspection, full ROM, capillary refill normal, no calf tenderness and no pedal edema Neuro: COMMON NORMALS: patient oriented x3 SENSORIUM/ORIENTATION: Yes alert MENINGEAL SIGNS: Yes no meningeal signs Skin: COMMON NORMALS: no rashes or lesions noted, no wounds, turgor normal, no jaundice, no petechiae and no mottling GENERAL SKIN EXAM: no rashes or lesions noted and turgor normal Course Reevaluation(s): Reevaluation #1: Discussed her lab and imaging findings with her. Negative for acute findings. We will discharge her home with no new orders. She voiced understanding and is in agreement with the plan. Time: 20:26 Vital Signs: Vital signs: Vital Signs Temperature 98.0 F 07/13/20 16:53 Pulse Rate 69 07/13/20 20:38 Respiratory Rate 18 07/13/20 20:38 Blood Pressure 120/68 07/13/20 20:38 Pulse Oximetry 97 07/13/20 20:38 MDM - Chest Pain MDM Narrative: Medical decision making narrative: Patient with chest pain that is unlikely to be cardiac in origin. She is evaluated and no acute findings were found. Negative HS troponin x 2, negative d-dimer. She is discharged home with no new orders. Medical Records: Attestation: I reviewed the patient's medical records. Lab Data: Attestation: I reviewed the patient's lab results. Labs: Lab Results 07/13/20 07/13/20 07/13/20 Range/Units 17:25 17:25 17:25 WBC 10.9 H (4.0-10.0) 10^3/ uL RBC 4.25 (4.1-5.3) 10^6/u L Hgb 13.0 (11.5-15.3) g/dL Hct 40.9 (37.0-47.0) % MCV 96.2 (81-99) fL MCH 30.6 (28.0-34.0) pg MCHC 31.8 (30.0-36.0) g/dL RDW 13.6 (12.1-15.1) % Plt Count 310 (130-400) 10^3/c mm MPV 9.5 (7.4-10.4) fL Neut % (Auto) 44.5 % Lymph % (Auto) 42.4 % Ferry % (Auto) 3.9 % Eos % (Auto) 8.1 % Baso % (Auto) 0.8 % Neut # (Auto) 4.85 (1.8-7.7) 10^3/u L Lymph # (Auto) 4.6 (0.8-4.8) 10^3/u L Ferry # (Auto) 0.4 (0.2-0.9) 10^3/u L Eos # (Auto) 0.9 H (0.0-0.8) 10^3/u L Baso # (Auto) 0.1 (0.0-0.1) 10^3/u L Nucleated RBC % (a uto) 0 % Nucleated RBCs # 0.0 /100WBC PT 12.50 (12.1-14.9) SECO NDS INR 0.91 (0.8-1.2) D-Dimer <= 0.27 (0-0.59) ug/mIFE U Sodium 137 (136-145) mmol/L Potassium 4.0 (3.5-5.1) mmol/L Chloride 103 (98-107) mmol/L Carbon Dioxide 24 (22-29) mmol/L Anion Gap 14.0 (5-19) BUN 9 (6-20) mg/dL Creatinine 0.6 (0.5-0.9) mg/dL GFR Calculation 109.1 (90-130) mL/min Glucose 89 (65-115) mg/dL Calculated Osmolal ity 282 L (285-295) mOsm/k g Calcium 9.3 (8.5-10.5) mg/dL Total Bilirubin 0.2 (0.15-1.2) mg/dL AST 13 (0-32) U/L ALT 14 (0-33) U/L Alkaline Phosphata se 80 (35-105) IU/L Troponin T Baselin e (0-10) ng/L Troponin T 120 Min precious (0-10) ng/L Delta Troponin T (0-10) ABS# Total Protein 7.3 (6.6-8.7) g/dL Albumin 4.1 (3.5-5.2) g/dL Globulin 3.2 (1.3-4.6) g/dL Lipase (13-60) U/L HCG, Qual (Negative) 07/13/20 07/13/20 07/13/20 Range/Units 17:25 17:25 18:26 WBC (4.0-10.0) 10^3/ uL RBC (4.1-5.3) 10^6/u L Hgb (11.5-15.3) g/dL Hct (37.0-47.0) % MCV (81-99) fL MCH (28.0-34.0) pg MCHC (30.0-36.0) g/dL RDW (12.1-15.1) % Plt Count (130-400) 10^3/c mm MPV (7.4-10.4) fL Neut % (Auto) % Lymph % (Auto) % Ferry % (Auto) % Eos % (Auto) % Baso % (Auto) % Neut # (Auto) (1.8-7.7) 10^3/u L Lymph # (Auto) (0.8-4.8) 10^3/u L Ferry # (Auto) (0.2-0.9) 10^3/u L Eos # (Auto) (0.0-0.8) 10^3/u L Baso # (Auto) (0.0-0.1) 10^3/u L Nucleated RBC % (a uto) % Nucleated RBCs # /100WBC PT (12.1-14.9) SECO NDS INR (0.8-1.2) D-Dimer (0-0.59) ug/mIFE U Sodium (136-145) mmol/L Potassium (3.5-5.1) mmol/L Chloride (98-107) mmol/L Carbon Dioxide (22-29) mmol/L Anion Gap (5-19) BUN (6-20) mg/dL Creatinine (0.5-0.9) mg/dL GFR Calculation (90-130) mL/min Glucose (65-115) mg/dL Calculated Osmolal ity (285-295) mOsm/k g Calcium (8.5-10.5) mg/dL Total Bilirubin (0.15-1.2) mg/dL AST (0-32) U/L ALT (0-33) U/L Alkaline Phosphata se (35-105) IU/L Troponin T Baselin e 6 (0-10) ng/L Troponin T 120 Min precious (0-10) ng/L Delta Troponin T (0-10) ABS# Total Protein (6.6-8.7) g/dL Albumin (3.5-5.2) g/dL Globulin (1.3-4.6) g/dL Lipase 16 (13-60) U/L HCG, Qual Negative (Negative) 07/13/20 Range/Units 19:50 WBC (4.0-10.0) 10^3/ uL RBC (4.1-5.3) 10^6/u L Hgb (11.5-15.3) g/dL Hct (37.0-47.0) % MCV (81-99) fL MCH (28.0-34.0) pg MCHC (30.0-36.0) g/dL RDW (12.1-15.1) % Plt Count (130-400) 10^3/c mm MPV (7.4-10.4) fL Neut % (Auto) % Lymph % (Auto) % Ferry % (Auto) % Eos % (Auto) % Baso % (Auto) % Neut # (Auto) (1.8-7.7) 10^3/u L Lymph # (Auto) (0.8-4.8) 10^3/u L Ferry # (Auto) (0.2-0.9) 10^3/u L Eos # (Auto) (0.0-0.8) 10^3/u L Baso # (Auto) (0.0-0.1) 10^3/u L Nucleated RBC % (a uto) % Nucleated RBCs # /100WBC PT (12.1-14.9) SECO NDS INR (0.8-1.2) D-Dimer (0-0.59) ug/mIFE U Sodium (136-145) mmol/L Potassium (3.5-5.1) mmol/L Chloride (98-107) mmol/L Carbon Dioxide (22-29) mmol/L Anion Gap (5-19) BUN (6-20) mg/dL Creatinine (0.5-0.9) mg/dL GFR Calculation (90-130) mL/min Glucose (65-115) mg/dL Calculated Osmolal ity (285-295) mOsm/k g Calcium (8.5-10.5) mg/dL Total Bilirubin (0.15-1.2) mg/dL AST (0-32) U/L ALT (0-33) U/L Alkaline Phosphata se (35-105) IU/L Troponin T Baselin e (0-10) ng/L Troponin T 120 Min precious 6.00 (0-10) ng/L Delta Troponin T 0 (0-10) ABS# Total Protein (6.6-8.7) g/dL Albumin (3.5-5.2) g/dL Globulin (1.3-4.6) g/dL Lipase (13-60) U/L HCG, Qual (Negative) Imaging Data^: CXR: Attestation: I personally reviewed and interpreted this imaging study as follows: My impression: No acute findings EKG Data^: EKG 1: Attestation: I personally reviewed and interpreted this EKG as follows: EKG interpretation date: 07/13/20 EKG interpretation time: 16:56 Prior EKG tracings: not available for review Interpretation: Sinus rhythm with sinus arrhythmia. Heart rate [address] changes. Normal axis. EKG 2: Attestation: I personally reviewed and interpreted this EKG as follows: EKG interpretation date: 07/13/20 EKG interpretation time: 19:07 Prior EKG tracings: available for review Interpretation: Normal sinus rhythm. Heart rate 66 bpm. Normal axis. No ST changes Discharge Plan Discharge Patient Disposition: Home Clinical Impression: Non-cardiac chest pain Condition: Stable Prescriptions: Continued fluoxetine 20 mg capsule 20 mg PO DAILY 30 Days Qty: 30 RF: 3 nicotine 21 mg/24 hr patch 24 hour 1 patch TRANSDERMA DAILY Qty: 28 RF: 0 Discharge Orders: Discharge Order (Routine); Ordered 07/13/20 Ordered By: Will Cuevas Referrals: Quiana Espinosa MD [Primary Care Provider] - 1-3 days Discharge Diet: Usual diet Discharge Activity: Increase activity as tolerated Patient Instructions: Noncardiac Chest Pain (ED) Activity Restrictions/Additional Instructions: Return for any new or worsening symptoms. Follow-up with your primary care provider within 3 days. Continue home medications. Discharge Date/Time: 07/13/20 20:38 Coding Level of Care Code ED Completions Manager for Chg Fwd Exam Comprehensive
[2020-07-13 17:39] LABS: Basophils # 0.1 10^3/uL (0.0-0.1); Basophils % 0.8 %; Eosinophils # 0.9 10^3/uL (0.0-0.8); Eosinophils % 8.1 %; Hematocrit 40.9 % (37.0-47.0); Lymphocytes # 4.6 10^3/uL (0.8-4.8); Lymphocytes % 42.4 %; Mean Corpuscular HGB Conc 31.8 g/dL (30.0-36.0); Mean Corpuscular Hemoglobin 30.6 pg (28.0-34.0); Mean Corpuscular Volume 96.2 fL (81-99); Mean Platelet Volume 9.5 fL (7.4-10.4); Monocytes # 0.4 10^3/uL (0.2-0.9); Monocytes % 3.9 %; Neutrophils # 4.85 10^3/uL (1.8-7.7); Neutrophils % 44.5 %; Nucleated Red Blood Cells % 0 %; Platelet Count 310 10^3/cmm (130-400); Red Blood Count 4.25 10^6/uL (4.1-5.3); Red Cell Distribution Width 13.6 % (12.1-15.1); White Blood Count 10.9 10^3/uL (4.0-10.0)
[2020-07-13 17:53] LABS: INR 0.91 (0.8-1.2)
[2020-07-13 17:56] LABS: D Dimer <= 0.27 ug/mIFEU (0-0.59)
[2020-07-13 18:01] LABS: Alanine Aminotransferase 14 U/L (0-33); Albumin Level 4.1 g/dL (3.5-5.2); Alkaline Phosphatase 80 IU/L (35-105); Aspartate Amino Transferase 13 U/L (0-32); Blood Urea Nitrogen 9 mg/dL (6-20); Calcium 9.3 mg/dL (8.5-10.5); Carbon Dioxide 24 mmol/L (22-29); Chloride 103 mmol/L (98-107); Globulin 3.2 g/dL (1.3-4.6); Glomerular Filtration Rate 109.1 mL/min (90-130); Glucose 89 mg/dL (65-115); Osmolality Calculated 282 mOsm/kg (285-295); Sodium 137 mmol/L (136-145); Total Bilirubin 0.2 mg/dL (0.15-1.2); Total Protein 7.3 g/dL (6.6-8.7)
[2020-07-13] MEDS: aspirin 81 mg Chew Tablet 324 MG PO (18:01)
[2020-07-13] MEDS: nitroglycerin 1 gm/inch oint Pkt 1 INCH TOPICAL (18:01)
[2020-07-13 18:04] LABS: Troponin(5th) Baseline 6 ng/L (0-10)
[2020-07-13 18:33] VITALS: BP 105/79; PULSE 60; RESP 20; O2SAT 99
[2020-07-13 18:37] LABS: HCG Qualitative Urine. Negative (Negative)
--- NOTE | 2020-07-13 19:07 | PC.NURSE ---
Report taken from Mikki QUINTANA and care transferred to Melissa QUINTANA
--- NOTE | 2020-07-13 19:09 | ECG_ITS ---
[facility] Test Date: 2020-07-13 Pat Name: Misa Cohen Department: Room: Gender: Female [employer]: : 1975 Requested By: Vijay Parsons Order Number: [id number] Flo MD: PAPI BUSH Measurements Intervals [place] Rate: 66 P: 25 MT: 147 QRS: 35 QRSD: 81 T: 50 QT: 407 QTc: 428 Interpretive Statements SINUS RHYTHM Compared to ECG 07/13/2020 16:56:25 Sinus arrhythmia no longer present Electronically Signed On 07-13-2020 21:05:29 CDT by PAPI BUSH [email or web address]
--- NOTE | 2020-07-13 19:14 | PC.NURSE ---
EKG done at 1904 and shown to ER doctor
[2020-07-13 20:13] LABS: Lipase 16 U/L (13-60)
[2020-07-13 20:17] LABS: Troponin 5 2HR Delta 0 ABS# (0-10)
[2020-07-13 20:25] VITALS: BP 120/68; PULSE 71; RESP 15; O2SAT 99
[2020-07-13 20:38] VITALS: BP 120/68; PULSE 69; RESP 18; O2SAT 97
[2020-07-13 23:54] LABS: Add Urine Microscopic? NO
[2020-07-14 00:10] LABS: Bilirubin Urine Neg (Negative); Blood Urine Neg (Negative); Glucose Urine UA Norm (Normal); Ketones Urine Negative (Negative); Leukocyte Esterase Urine Negative (Negative); Nitrate Urine Negative (Negative); Protein Urine Neg (Negative); Urine Appearance Clear (CLEAR); Urine Color Straw (Yellow); Urobilinogen Urine Norm (Negative); pH Urine 6 (5-7)
== END 2020-07-13 20:38 | disposition home or self-care (01) ==
PROVIDERS: Nurse Practitioner Family; Emergency Provider Family Medicine; PCP Family Medicine
DX: R07.89 Other chest pain (principal); F17.210 Nicotine dependence, cigarettes, uncomplicated
CPT/HCPCS: 12345; 36415; 71045; 80053; 81003; 81025; 83690; 84484; 85025; 85378; 85610; 93005; 99283

== ENCOUNTER → 2020-08-17 14:38 | Outpatient (BNVA) | payer MEDICAID, SELFPAY | PROVIDERS: PCP Family Medicine; Visit Provider Nurse Practitioner Psychiatric/Mental Health | DX: F43.10 Post-traumatic stress disorder, unspecified (principal); F33.1 Major depressive disorder, recurrent, moderate; Z63.0 Problems in relationship with spouse or partner; Z71.6 Tobacco abuse counseling; F17.200 Nicotine dependence, unspecified, uncomplicated | CPT/HCPCS: 99214 ==

== ENCOUNTER → 2020-08-31 08:56 | Outpatient (BNVA) | payer MEDICAID, SELFPAY | PROVIDERS: PCP Family Medicine; Visit Provider Nurse Practitioner Psychiatric/Mental Health | DX: F33.1 Major depressive disorder, recurrent, moderate (principal); F43.10 Post-traumatic stress disorder, unspecified | CPT/HCPCS: 99212 ==

== ENCOUNTER → 2020-10-05 10:55 | Outpatient (BNVA) | payer MEDICAID, SELFPAY | PROVIDERS: PCP Family Medicine; Visit Provider Nurse Practitioner Psychiatric/Mental Health | DX: F33.1 Major depressive disorder, recurrent, moderate (principal); F43.10 Post-traumatic stress disorder, unspecified | CPT/HCPCS: 99213 ==

== ENCOUNTER → 2021-01-04 17:08 | Outpatient (BNVA) | payer MEDICAID, SELFPAY | PROVIDERS: PCP Family Medicine; Visit Provider Nurse Practitioner Family | DX: M79.671 Pain in right foot (principal) | CPT/HCPCS: 73630 ==

== ENCOUNTER → 2021-01-09 08:18 | Outpatient (BNVA) | payer MEDICAID, SELFPAY | PROVIDERS: PCP Family Medicine; Visit Provider Nurse Practitioner Psychiatric/Mental Health | DX: F33.1 Major depressive disorder, recurrent, moderate (principal); F43.10 Post-traumatic stress disorder, unspecified; F17.200 Nicotine dependence, unspecified, uncomplicated | CPT/HCPCS: 99213 ==

== ENCOUNTER → 2021-02-06 08:37 | Outpatient (BNVA) | payer MEDICAID, SELFPAY | PROVIDERS: PCP Family Medicine; Visit Provider Nurse Practitioner Psychiatric/Mental Health | DX: F33.1 Major depressive disorder, recurrent, moderate (principal); F43.10 Post-traumatic stress disorder, unspecified; F17.200 Nicotine dependence, unspecified, uncomplicated | CPT/HCPCS: 99213 ==

== ENCOUNTER → 2021-05-08 11:28 | Outpatient (BNVA) | payer MEDICAID, SELFPAY | PROVIDERS: PCP Family Medicine; Visit Provider Family Medicine | DX: M25.521 Pain in right elbow (principal) | CPT/HCPCS: 73080 ==

== ENCOUNTER → 2021-12-25 11:40 | Outpatient (BNVA) | payer MEDICAID, SELFPAY | PROVIDERS: PCP Family Medicine; Visit Provider Nurse Practitioner Family | DX: E04.1 Nontoxic single thyroid nodule (principal); F33.1 Major depressive disorder, recurrent, moderate; F43.10 Post-traumatic stress disorder, unspecified; K58.0 Irritable bowel syndrome with diarrhea; F41.9 Anxiety disorder, unspecified | CPT/HCPCS: 80053; 80061; 84439; 84443 ==

== ENCOUNTER 2022-01-08 11:41 | Outpatient (CLI) | payer MEDICAID, SELFPAY ==
--- NOTE | 2022-01-08 12:20 | XR_ITS ---
WS: [email or web address] Cervical spine, 3 views, 01/08/2022 Clinical Data: neck pain Comparison: None. Findings: No compression fractures are seen. The disc heights are normal. There is no prevertebral so ft tissue swelling. The odontoid is unremarkable. The soft tissues of the neck and the lung apices ar e normal. XR/XR cervical spine 3V* [id number] Impression: Negative cervical spine.
--- NOTE | 2022-01-08 12:20 | XR_ITS ---
WS: [email or web address] Chest 2 views, 01/08/2022 Clinical Data: cough, SOB Comparison: Portable chest, 07/13/2020. Findings: No nodules, masses or effusions are seen. The heart is normal. The pulmonary vascularity is not increased. No pneumonia or pneumothorax is seen. There are clips in the right upper quadrant fro m a cholecystectomy. XR/XR chest 2V* [id number] Impression: Negative chest.
--- NOTE | 2022-01-08 12:20 | XR_ITS ---
WS: [email or web address] Lumbar spine, AP view, L5-S1 spot, both obliques, lateral views in flexion, extension and neutral pos ition, 01/08/2022 Clinical Data: back pain Comparison: Lumbar spine, 06/16/2020. Findings: No compression fractures or subluxation is seen. No disc space narrowing is seen. The transverse proc esses and SI joints are normal. The oblique films show no spondylolysis. There is no limitation of motion on flexion or extension. Th ere is minimal anterior osteoarthritic spurring L1-L3. There are clips in the right upper quadrant fr om a cholecystectomy. XR/XR lumbar spine 6V w f/e [id number] Impression: 1. Minimal osteoarthritis L1-L3. 2. Negative for spondylolysis or spondylolisthesis. 3. No limitation of motion or subluxation on flexion or extension.
== END 2022-01-08 11:42 | disposition home or self-care (01) ==
LOC: RAD 11:50
PROVIDERS: PCP Family Medicine; Visit Provider Nurse Practitioner Family
DX: M54.50 Low back pain, unspecified (principal); F17.200 Nicotine dependence, unspecified, uncomplicated; R05.9 Cough, unspecified; R06.02 Shortness of breath; M54.2 Cervicalgia
CPT/HCPCS: 71046; 72040; 72114

== ENCOUNTER → 2022-05-22 16:51 | Outpatient (BNVA) | payer MEDICAID, SELFPAY | PROVIDERS: PCP Family Medicine; Visit Provider Nurse Practitioner Family | DX: R06.00 Dyspnea, unspecified (principal); R07.9 Chest pain, unspecified; R42 Dizziness and giddiness; R06.02 Shortness of breath; K21.9 Gastro-esophageal reflux disease without esophagitis; F41.9 Anxiety disorder, unspecified; F32.9 Major depressive disorder, single episode, unspecified; E78.00 Pure hypercholesterolemia, unspecified; M94.0 Chondrocostal junction syndrome [Tietze]; R19.7 Diarrhea, unspecified | CPT/HCPCS: 80053; 80061; 93005 ==

== ENCOUNTER → 2022-05-29 13:09 | Outpatient (BNVA) | payer MEDICAID, SELFPAY | PROVIDERS: PCP Nurse Practitioner Family; Visit Provider Internal Medicine Cardiovascular Disease | DX: R07.9 Chest pain, unspecified (principal); R06.00 Dyspnea, unspecified | CPT/HCPCS: 93270 ==

== ENCOUNTER → 2022-06-20 14:26 | Outpatient (BNVA) | payer MEDICAID, SELFPAY | PROVIDERS: PCP Nurse Practitioner Family; Visit Provider Internal Medicine Cardiovascular Disease | DX: R00.2 Palpitations (principal); R06.02 Shortness of breath; F17.210 Nicotine dependence, cigarettes, uncomplicated | CPT/HCPCS: 99203; 99204 ==

== ENCOUNTER → 2022-06-24 10:33 | Outpatient (BNVA) | payer MEDICAID, SELFPAY | PROVIDERS: PCP Nurse Practitioner Family; Visit Provider Nurse Practitioner Family | DX: M25.511 Pain in right shoulder (principal) | CPT/HCPCS: 73030 ==

== ENCOUNTER 2022-09-30 08:09 | Outpatient (CLI) | payer MEDICAID, SELFPAY ==
--- NOTE | 2022-09-30 08:21 | US_ITS ---
WS: [email or web address] Complete ABDOMINAL ULTRASOUND HISTORY: RUQ ABD PAIN COMPARISON: None available. Liver: 16.5 cm in length. Liver is normal size and echogenicity with no mass or intrahepatic dilatati on. Portal Vein: Normal hepatopetal flow with monophasic waveform. Gallbladder: Prior cholecystectomy. Pancreas: Normal size and echogenicity. CBD: 0.3 cm. Right kidney: 11.6 cm x 4.7 cm x 4.0 cm. No mass, cortical thickening or hydronephrosis. Left kidney: 11.7 cm x 4.3 cm x 4.5 cm. No mass, cortical thickening or hydronephrosis. Spleen: Normal size and echogenicity. Abdominal aorta and IVC are within normal limits. No ascites. US/US abdomen complete* [id number] IMPRESSION: 1. Prior cholecystectomy. 2. Otherwise normal abdominal ultrasound.
== END 2022-09-30 08:10 | disposition home or self-care (01) ==
LOC: RAD 08:09
PROVIDERS: PCP Nurse Practitioner Family; Visit Provider Nurse Practitioner Family
DX: Z90.49 Acquired absence of other specified parts of digestive tract (principal)
CPT/HCPCS: 76700

== ENCOUNTER → 2023-08-25 17:02 | Outpatient (BNVA) | payer MEDICAID, SELFPAY | PROVIDERS: PCP Nurse Practitioner Family; Visit Provider Nurse Practitioner Family | DX: E78.00 Pure hypercholesterolemia, unspecified (principal); K21.9 Gastro-esophageal reflux disease without esophagitis; F41.9 Anxiety disorder, unspecified; F33.1 Major depressive disorder, recurrent, moderate; E04.1 Nontoxic single thyroid nodule; M25.50 Pain in unspecified joint; M79.10 Myalgia, unspecified site; Z12.2 Encounter for screening for malignant neoplasm of respiratory organs; F17.200 Nicotine dependence, unspecified, uncomplicated | CPT/HCPCS: 80053; 80061; 84443; 85651; 86160; 86162; 86235; 86255; 86376 ==

== ENCOUNTER 2023-09-30 12:48 | Outpatient (CLI) | payer MEDICAID, SELFPAY ==
--- NOTE | 2023-09-30 12:59 | MM_ITS ---
WS: [email or web address] DIAGNOSTIC BILATERAL DIGITAL BREAST TOMOSYNTHESIS MAMMOGRAPHY WITH CAD RIGHT breast ultrasound, limited. HISTORY: BREAST PAIN COMPARISON: 12/01/2018, 06/13/2011 TECHNIQUE: Bilateral craniocaudad, mediolateral oblique, and mediolateral views are submitted with to mosynthesis and SM. Spot compression RIGHT CC and MLO. Computer aided detection utilized. Breast composition: There are scattered areas of fibroglandular density. There is no abnormality with in either breast. No distortion or masses soft tissue thickening in the RIGHT breast in the area of p ain towards the upper outer quadrant. No nipple retraction. RIGHT breast ultrasound, limited. Normal appearance of the RIGHT upper outer quadrant of the breast. This is the area of pain. No mass identified. IMPRESSION: MM/[place] [id number] BI-RADS: 2-Benign FOLLOW UP: 1 Year Follow-up
--- NOTE | 2023-09-30 14:19 | US_ITS ---
WS: [email or web address] DIAGNOSTIC BILATERAL DIGITAL BREAST TOMOSYNTHESIS MAMMOGRAPHY WITH CAD RIGHT breast ultrasound, limited. HISTORY: BREAST PAIN COMPARISON: 12/01/2018, 06/13/2011 TECHNIQUE: Bilateral craniocaudad, mediolateral oblique, and mediolateral views are submitted with to mosynthesis and SM. Spot compression RIGHT CC and MLO. Computer aided detection utilized. Breast composition: There are scattered areas of fibroglandular density. There is no abnormality with in either breast. No distortion or masses soft tissue thickening in the RIGHT breast in the area of p ain towards the upper outer quadrant. No nipple retraction. RIGHT breast ultrasound, limited. Normal appearance of the RIGHT upper outer quadrant of the breast. This is the area of pain. No mass identified. IMPRESSION: US/US breast RT limited* [id number] BI-RADS: 2-Benign FOLLOW UP: 1 Year Follow-up
== END 2023-09-30 12:49 | disposition home or self-care (01) ==
LOC: RAD 12:49
PROVIDERS: PCP Nurse Practitioner Family; Visit Provider Nurse Practitioner Family
DX: N64.4 Mastodynia (principal)
CPT/HCPCS: 76642; 77062; G0279

== ENCOUNTER 2024-05-11 06:00 | Outpatient (CLI) | payer MEDICAID, SELFPAY | END 2024-05-11 06:01 | disposition home or self-care (01) | LOC: RAD 05-19 16:11 | PROVIDERS: PCP Nurse Practitioner Family; Visit Provider Nurse Practitioner Family | DX: F41.9 Anxiety disorder, unspecified (principal); F43.10 Post-traumatic stress disorder, unspecified; F33.1 Major depressive disorder, recurrent, moderate; E78.00 Pure hypercholesterolemia, unspecified; E04.1 Nontoxic single thyroid nodule | CPT/HCPCS: 80053; 80061; 84443; 85025; 87491; 87591 ==

== ENCOUNTER → 2024-05-14 09:33 | Outpatient (BNVA) | payer MEDICAID, SELFPAY | PROVIDERS: PCP Nurse Practitioner Family; Referring Provider Nurse Practitioner Family; Visit Provider Student in an Organized Health Care Education/Training Program | DX: Z12.11 Encounter for screening for malignant neoplasm of colon (principal) | CPT/HCPCS: 99024; 99204 ==

== ENCOUNTER → 2024-06-22 11:15 | Outpatient (BNVA) | payer MEDICAID, SELFPAY | PROVIDERS: PCP Nurse Practitioner Family; Visit Provider Nurse Practitioner Family | DX: R05.9 Cough, unspecified (principal) | CPT/HCPCS: 87400; 87426 ==

== ENCOUNTER → 2024-07-01 08:08 | Outpatient (BNVA) | payer MEDICAID, SELFPAY | PROVIDERS: PCP Nurse Practitioner Family; Visit Provider Podiatrist Foot & Ankle Surgery | DX: M21.621 Bunionette of right foot (principal); M21.622 Bunionette of left foot; M65.971 Unspecified synovitis and tenosynovitis, right ankle and foot; L60.8 Other nail disorders; L60.3 Nail dystrophy | CPT/HCPCS: 99203 ==

== ENCOUNTER 2024-07-20 12:40 | Emergency (ER) | payer MEDICAID, SELFPAY ==
[2024-07-20 12:48] VITALS: BP 120/81; PULSE 80; TEMP 36.5; O2SAT 98; BMI 32.4
--- NOTE | 2024-07-20 12:55 | W.ED.ALLEREA ---
HPI - Allergic Reaction General: Chief complaint: Skin/Abscess/Foreign Body Stated complaint: Yellow jacket sting Time Seen by Provider: 07/20/24 12:41 Source: patient Mode of arrival: ambulatory Limitations: no limitations History of Present Illness: HPI narrative: Patient is a 49-year-old female presents to ED today with a complaint of an insect sting near her right elbow. She states just prior to arrival she got stung by a yellow and black wasp . She states the last time this happened she had itching all over for several days and was told the next time this happens she needs to go to the emergency department. Patient at time of arrival has some minor swelling and itching near the sting site but no other symptoms. She denies chest pain, shortness of breath/difficulty breathing, palpitations, abdominal pain, vomiting or diarrhea, rash, lip or tongue swelling. MD complaint: allergic reaction Onset (ago): hour(s) Exposure: other (wasp sting) Associated symptoms: Reports no associated symptoms; Deny abdominal pain, dizziness or vomiting Severity: mild Treatment prior to arrival: none Previous Allergic Reaction History: other (mild itching) Related Data Previous Rx's Medication Instructions Recorded ibuprofen 800 mg tablet (IBU) 800 mg PO TID PRN pain #90 tabs 05/11/24 loratadine 10 mg tablet (Claritin) 10 mg PO DAILY 90 days #90 tabs 05/11/24 albuterol sulfate 90 mcg/actuation 2 puff inhalation QID PRN 06/22/24 aerosol inhaler shortness of breath or wheezing #6.7 grams benzonatate 200 mg capsule 200 mg PO TID PRN cough #30 caps 06/22/24 Allergies Allergy/AdvReac Type Severity Reaction Status Date / Time oxycodone [From OxyContin] Allergy ADR-Itching Verified 07/20/24 12:54 Review of Systems Eyes: Denies: change in vision ENMT: Denies: swelling of lips/tongue Card: Denies: chest pain or palpitations Resp: Denies: dyspnea GI: Denies: abdominal pain, vomiting or diarrhea Skin/Breast: Reports: pruritus Neuro: Denies: headache(s), numbness in extremities, weakness in extremities, sensory changes or dizziness [facility] ED PFSH: Medical History Partner relational problem December says she cries easily, fatigue, bad dreams, mind goes blank, difficulty concentrating, trouble making decisions, trouble remembering, thoughts hard to dismiss, trouble sleeping, easily annoyed and irritable, nervous feeling, excessive worries and fears, excessive fears of crowds, no interests in things, feeling inferior, change in personality, work difficulties, thoughts of harming self. Major depressive disorder, recurrent episode, moderate with anxious distress PTSD (post-traumatic stress disorder) Seizure Headache Thyroid Nodule Smoker Anxiety and depression Goiter diffuse Surgical History History of cholecystectomy History of thyroidectomy History of partial hysterectomy Family History Other Cancer Diabetes Stroke Social History Smoking and tobacco/nicotine status: current every day tobacco/nicotine user (education declined) cigarettes Packs smoked per day: 1.5 Years cigarettes smoked: 35 Quit status (tobacco/nicotine): considering quitting Second hand smoke exposure: Yes Alcohol intake: current Alcohol intake frequency: holidays/special occasions only Substance/Drug Use: current Substance/Drug use frequency: few times a month Lives independently: Yes Housing: Manufactured/Mobile home Marital status: Number of children: 2 Number of grandchildren: 1 Highest education level completed: 8th Grade service: No Current occupational status: disabled Current gender identity: Female Physical Exam Const: COMMON NORMALS: no acute distress, patient oriented x3, no limitations, alert and well nourished GENERAL APPEARANCE: cooperative HENMT: FACE & SINUS: normal facial exam MOUTH: lip normal, tongue normal and other (no angioedema) Eye: GENERAL EYE: appearance normal, both eyes and all related structures Neck/C-Spine: GENERAL: Yes normal visual inspection, No anterior neck swelling and No submandibular swelling Resp: COMMON NORMALS: normal respiratory effort and clear to auscultation bilaterally AUSCULTATION: clear to auscultation bilaterally Cardio: COMMON NORMALS: regular rate and regular rhythm RATE: regular rate RHYTHM: regular rhythm GI: COMMON NORMALS: Normal to inspection, nondistended, normoactive bowel sounds present and non-tender Extremity: GENERAL: Yes normal exam except as noted EXTREMITY IMAGE (BACK): 1. wasp sting; mild surrounding edema; pt reports itching; symptoms consistent with localized reaction Neuro: COMMON NORMALS: patient oriented x3, moves all extremities, no focal motor deficits and no sensory deficits noted SENSORIUM/ORIENTATION: Yes alert Skin: NARRATIVE SKIN EXAM: see above Course Vital Signs: Vital signs: Vital Signs Temperature 97.7 F 07/20/24 12:48 Pulse Rate 80 07/20/24 12:48 Blood Pressure 120/81 07/20/24 12:48 Pulse Oximetry 98 07/20/24 12:48 Oxygen Delivery Me thod Room Air 07/20/24 12:48 MDM - Allergic Reaction Medical Decision Making Patient here with no signs or symptoms of anaphylaxis. She has no previous anaphylactic reactions. Patient has been observed here for over an hour without any change in her symptoms. She was given IM Benadryl/Solu-Medrol. She will be allowed discharge with return precautions. No radiology studies performed this visit Discharge Plan Discharge Patient Disposition: Home Clinical Impression: Local reaction to insect sting Qualifiers: Encounter type: initial encounter Injury intent: accidental or unintentional Qualified Code(s): T63.481A - Toxic effect of venom of other arthropod, accidental (unintentional), initial encounter Condition: Stable Prescriptions: No Action ibuprofen [IBU] 800 mg tablet 800 mg PO TID PRN (Reason: pain) Qty: 90 0RF loratadine [Claritin] 10 mg tablet 10 mg PO DAILY 90 Days Qty: 90 1RF benzonatate 200 mg capsule 200 mg PO TID PRN (Reason: cough) Qty: 30 0RF albuterol sulfate 90 mcg/actuation HFA aerosol inhaler 2 puff inhalation QID PRN (Reason: shortness of breath or wheezing) Qty: 6.7 2RF Discharge Orders: Discharge ED (Routine); Ordered 07/20/24 Ordered By: Ani Burden Referrals: Mallory Smith FNP-C [Primary Care Provider] - Patient Instructions: Insect Bite or Sting (ED) Activity Restrictions/Additional Instructions: As we discussed, you can continue to take 25-50mg of Benadryl every 4-6 hours as needed for itching and swelling. Please return to the emergency department for any swelling to your lips or tongue, difficulty breathing, shortness of breath, significant rash, severe abdominal pain, chest pain, palpitations, or any other concerns you may have. Coding Level of Care Code ED Ladle Handler for Cynthia Cooper
[2024-07-20] MEDS: methylPREDNISolone sod succ 125 mg/2 mL INJ 80 MG IM (13:11)
[2024-07-20] MEDS: diphenhydrAMINE 50 mg/mL SDV 1mL IM (13:12)
[2024-07-20 13:48] VITALS: BP 133/87; PULSE 75; O2SAT 97
== END 2024-07-20 13:49 | disposition home or self-care (01) ==
PROVIDERS: Emergency Provider Physician Assistant; PCP Nurse Practitioner Family
DX: T63.481A Toxic effect of venom of other arthropod, accidental (unintentional), initial encounter (principal); F17.210 Nicotine dependence, cigarettes, uncomplicated; X58.XXXA Exposure to other specified factors, initial encounter
CPT/HCPCS: 96372; 99284; J1200; J2919

== ENCOUNTER → 2024-09-22 14:39 | Outpatient (BNVA) | payer MEDICAID, SELFPAY | PROVIDERS: PCP Nurse Practitioner Family; Visit Provider Nurse Practitioner Family | DX: G89.29 Other chronic pain (principal); M25.512 Pain in left shoulder | CPT/HCPCS: 73030 ==

== ENCOUNTER 2024-12-29 12:35 | Outpatient (CLI) | payer MEDICAID, SELFPAY ==
--- NOTE | 2024-12-29 09:00 | MR_ITS ---
WS: [email or web address] MRI LEFT SHOULDER NONCONTRAST TECHNIQUE: Sagittal T2, coronal T1, T2 and proton density imaging. Axial gradient PDE imaging. CLINICAL INFORMATION: M25.512 - Pain in left shoulder COMPARISON: None. FINDINGS: Moderate arthritis AC joint. Mild downsloping acromion with subacromial spurring. Moderate degenerative narrowing at the glenohumeral joint. Normal supraspinatus. Normal infraspinatus. Normal teres minor. Normal subscapularis tendon. Biceps tendon appears intact within the bicipital groove. Normal bone marrow signal in the humerus and glenoid. Biceps labral anchor appears intact. MR/MR shoulder LT wo con* [id number] IMPRESSION: 1. Moderate arthritis AC joint with mild narrowing of the subacromial space. 2. Rotator cuff is intact. 3. Biceps tendon appears intact within the bicipital groove. 4. Moderate degenerative narrowing of the glenohumeral articulation. 5. No other acute findings.
== END 2024-12-29 12:36 | disposition home or self-care (01) ==
PROVIDERS: PCP Nurse Practitioner Family; Visit Provider Nurse Practitioner Family
DX: M19.012 Primary osteoarthritis, left shoulder (principal); M77.8 Other enthesopathies, not elsewhere classified
CPT/HCPCS: 73221

== ENCOUNTER → 2025-01-17 13:17 | Outpatient (BNVA) | payer MEDICAID, SELFPAY | PROVIDERS: PCP Nurse Practitioner Family; Visit Provider Nurse Practitioner | DX: M19.012 Primary osteoarthritis, left shoulder (principal) | CPT/HCPCS: 20610; 73030; 99204; J1100; J2795; J3301; J9999 ==

== ENCOUNTER → 2025-03-09 16:25 | Outpatient (BNVA) | payer MEDICAID, SELFPAY | PROVIDERS: PCP Nurse Practitioner Family; Visit Provider Nurse Practitioner | DX: E66.9 Obesity, unspecified (principal) | CPT/HCPCS: 80053; 80061; 82306; 84443 ==

== ENCOUNTER 2025-03-15 09:16 | Emergency (ER) | payer MEDICAID, SELFPAY ==
[2025-03-15 09:17] VITALS: BP 163/86; PULSE 70; RESP 16; TEMP 36.6; O2SAT 98
--- OUTSIDE RECORDS SUMMARY | 2025-03-15 09:20 | XMS_ITS | Encounter Summary ---
Author Organization [employer] Address 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 Name Role Phone Unavailable Primary Care Provider Unavailabl e Encounter Details Date Type Department Care Team (Late st Contact Info) Description 03/08/2025 External Device Data [facility] Provider, Abstract NO ADDRESS ON FILE Social History Tobacco Use Types Packs/Day Years Used Date Smoking Tobacco: Every Day Cigarettes 1 36.5 Started: 09/15/1988 Smokeless Tobacco: Never Alcohol Use Standard Drinks/Week Comments Not Currently 0 (1 standard drink = 0.6 oz pur e alcohol) Feeling Safe Answer Date Recorded Are you in a relationship wi th someone who hurts you emotionally and/or physically? No 05/09/2024 Comments No Sex and Gender Information Value Date Recorded Sex Assigned at Not on file Legal Sex Female 4:18 PM CDT Gender Identity Not on file Sexual Orientation Not on file documented as of this encounter Plan of Treatment Not on file documented as of this encounter Visit Diagnoses Not on filedocumented in this encounter
--- OUTSIDE RECORDS SUMMARY | 2025-03-15 09:20 | XMS_ITS | Encounter Summary ---
Author Organization [employer] Address [address] [place] [address] Care Team Providers Care Hand Fur Cleaner Name Role Phone Unavailable Primary Care Provider [...]
--- OUTSIDE RECORDS SUMMARY | 2025-03-15 09:21 | XMS_ITS | Clinical Summary ---
Author Organization [facility] Address [address] [address] Phone Care Team Providers Care General Partner Name Role Phone Unavailable Primary Care Provider Unavailabl e Medications ibuprofen (MOTRIN) 800 mg tablet Take 1 Tablet (800 mg) by mouth every 8 hours as needed for Pain. 30 Tablet 05/09/2024 Active orphenadrine (NORFLEX) 100 mg Extended Release tablet Take 1 Tablet (100 mg) by mouth 2 times daily. 20 Tablet 05/09/2024 Active Encounters Date Type Department Care Team Description 03/08/2025 External Device Data [facility]CTION Provider, Abstract 03/08/2025 External Device Data [facility] Provider, Abstract 03/02/2025 External Device Data [facility] Provider, Abstract 02/03/2025 External Device Data [facility] Provider, Abstract 02/02/2025 External Device Data [facility] Provider, Abstract 02/02/2025 External Device Data [facility] Provider, Abstract 02/01/2025 External Device Data [facility] Provider, Abstract 01/18/2025 External Device Data [facility] Provider, Abstract 12/28/2024 External Device Data [facility] Provider, Abstract from Last 3 Months Social History Tobacco Use Types Packs/Day Years Used Date Smoking Tobacco: Every Day Cigarettes 1 36.5 Started: 09/15/1988 Smokeless Tobacco: Never Tobacco Cessation:Ready to Q uit: Not Asked; Counseling Given: Not Answered Alcohol Use Standard Drinks/Week Comments Not Currently [...] on file Sexual Orientation Not on file Last Filed Vital Signs Vital Sign Reading Time Taken Comments Blood Pressure 115/76 05/09/2024 5:00 PM CDT Pulse 70 05/09/2024 5:00 PM CDT Temperature 36.6 C (97.8 F) 05/09/2024 4:26 PM CDT Respiratory Rate 20 05/09/2024 5:00 PM CDT Oxygen Saturation 98% 05/09/2024 5:00 PM CDT Inhaled Oxygen Concentration - - Weight - - Height - - Body Mass Index - - Plan of Treatment Health Maintenance Due Date Last Done Comments DTAP/TDAP/TD VACCINES (1 - Tdap) 01/25/1996 HEPATITIS B VACCINES (1 of 3 - 19+ 3-dose series) 01/13 HPV/Cotest (21-29) 1998 CERVICAL CANCER SCREENING 2007 HPV/Cotest (30-65) 2007 PAP SMEAR 2007 BREAST CANCER SCREENING 2017 COLORECTAL SCREENING 2022 Colorectal Cancer Screening 2022 FIT-DNA Q 3 years 2022 FIT/FOBT Q 1 year 2022 Flex Sig/CT Colonography Q 5 years 2022 INFLUENZA VACCINE (#1) 2024 Insurance MEDICAID [place]
--- NOTE | 2025-03-15 09:26 | XR_ITS ---
WS: [id number] XR foot RT min 3V* [id number] REASON FOR EXAM: injury/pain FINDINGS: No acute fracture. No focal bone lesion, periosteal reaction, or bone erosion. Joint spaces of the forefoot, midfoot, and hindfoot are intact and well preserved. Small posterior calcaneal enthesophyte. XR/XR foot RT min 3V* [id number] IMPRESSION: No acute abnormality as above.
--- NOTE | 2025-03-15 09:27 | W.ED.LOWEXIN ---
HPI - Extremity Injury (Lower) General: Chief Complaint: Extremity Injury, Lower Stated Complaint: R foot pain Time Seen by Provider: 03/15/25 09:17 Source: patient Mode of arrival: ambulatory Limitations: no limitations History of Present Illness: Patient is a 50-year-old female presents to ED today for evaluation of right foot pain. Patient states last week symptoms she was cleaning her house when she accidentally tripped over an extension cord. She states she got it caught between her 4th and 5th toes. She reportedly heard a pop . She states she has had pain since the injury but was just now able to find a ride to the emergency department for evaluation. She feels like her foot is somewhat swollen. She is not having any ankle pain or other discomforts. She is ambulatory here without assistance. complaint: foot injury Onset (ago): day(s) Injury: Right: foot Place: home Severity: mild Relieving factors: immobilization Exacerbating factors: weight bearing, movement and palpation Context: fall Associated symptoms: Reports no associated symptoms Other symptoms: none Related Data Previous Rx's ?Medication ?Instructions ?Recorded albuterol sulfate 90 mcg/actuation 2 puff inhalation QID PRN 03/09/25 aerosol inhaler shortness of breath or wheezing #6.7 grams doxycycline hyclate 100 mg capsule 100 mg PO BID #14 caps 03/09/25 ibuprofen 800 mg tablet (IBU) 800 mg PO Q12H PRN pain #60 tabs 03/09/25 loratadine 10 mg tablet (Claritin) 10 mg PO DAILY 90 days #90 tabs 03/09/25 semaglutide 0.25 mg or 0.5 mg (2 0.25 mg (0.368 mL) SUBCUT .week #3 03/09/25 mg/3 mL) subcutaneous pen injector mL (Ozempic) ergocalciferol (vitamin D2) 1,250 1,250 mcg PO .weekly #4 caps 03/14/25 mcg (50,000 unit) capsule Allergies Allergy/AdvReac Type Severity Reaction Status Date / Time oxycodone (From OxyContin) Allergy ADR-Itching Verified 03/09/25 15:50 Review of Systems Musc: Reports: extremity pain (R foot) and extremity swelling (R foot); Denies: neck pain, back pain, joint pain or joint swelling Neuro: Denies: numbness in extremities, weakness in extremities, sensory changes or difficulty walking PFS ED PFSH: Medical History Primary osteoarthritis, left shoulder Partner relational problem Misa says she cries easily, fatigue, bad dreams, mind goes blank, difficulty concentrating, trouble making decisions, trouble remembering, thoughts hard to dismiss, trouble sleeping, easily annoyed and irritable, nervous feeling, excessive worries and fears, excessive fears of crowds, no interests in things, feeling inferior, change in personality, work difficulties, thoughts of harming self. Major depressive disorder, recurrent episode, moderate with anxious distress PTSD (post-traumatic stress disorder) Seizure Headache Thyroid Nodule Smoker Anxiety and depression Goiter diffuse Surgical History History of cholecystectomy History of thyroidectomy 2020 Right no cancer History of partial hysterectomy Family History Other Cancer Diabetes Stroke Social History Smoking and tobacco/nicotine status: current every day tobacco/nicotine user (education declined) cigarettes Packs smoked per day: 1.5 Years cigarettes smoked: 35 Quit status (tobacco/nicotine): considering quitting Second hand smoke exposure: Yes Alcohol intake: current Alcohol intake frequency: holidays/special occasions only Substance/Drug Use: current Substance/Drug use frequency: few times a month Lives independently: Yes Housing: Manufactured/Mobile home Marital status: Number of children: 2 Number of grandchildren: 1 Highest education level completed: 8th Grade service: No Current occupational status: disabled Current gender identity: Female Physical Exam Const: COMMON NORMALS: no acute distress, no limitations, alert and well nourished Back/Pelvis: COMMON NORMALS: thoracic and lumbar spine normal to inspection Extremity: COMMON NORMALS: capillary refill normal, no joint enlargement, no clubbing, cyanosis or edema, no calf tenderness and no pedal edema GENERAL: Yes normal exam except as noted RIGHT LOWER EXTREMITY: Yes foot & digits (TTP dorsal lateral R foot w/o deformity; no obvious edema) Right foot and digits: Yes inspection (normal gross inspection-maybe some faint ecchymosis 5th digit), Yes ROM (normal) and Yes neurovascular exam (normal) Neuro: COMMON NORMALS: moves all extremities, no focal motor deficits, no sensory deficits noted and gait normal SENSORIUM/ORIENTATION: Yes alert Skin: TRAUMA: no lacerations or abrasions Course Vital Signs: Vital signs: Vital Signs Temperature 97.8 F 03/15/25 09:17 Pulse Rate 70 03/15/25 09:17 Respiratory Rate 16 03/15/25 09:17 Blood Pressure 163/86 03/15/25 09:17 Pulse Oximetry 98 03/15/25 09:17 Oxygen Delivery Me thod Room Air 03/15/25 09:17 MDM - Extremity Injury (Lower) Medical Decision Making I do not visualize any acute fractures on patient's right foot XR. Will MARIA ESTHER wrap. RICE therapy discussed. She can follow-up with primary care in 2 weeks or so if symptoms are not improving. Medical Records I reviewed the patient's medical records. Lab Data Radiology Impressions Foot X-Ray 03/15/25 09:26 IMPRESSION: No acute abnormality as above. All radiology interpretation(s) finalized by discharge Discharge Plan Discharge Patient Disposition: Home Clinical Impression: Right foot sprain Qualifiers: Encounter type: initial encounter Qualified Code(s): S93.601A - Unspecified sprain of right foot, initial encounter Condition: Stable Prescriptions: No Action ibuprofen [IBU] 800 mg tablet 800 mg PO Q12H PRN (Reason: pain) Qty: 60 2RF doxycycline hyclate 100 mg capsule 100 mg PO BID Qty: 14 0RF loratadine [Claritin] 10 mg tablet 10 mg PO DAILY 90 Days Qty: 90 1RF albuterol sulfate 90 mcg/actuation HFA aerosol inhaler 2 puff inhalation QID PRN (Reason: shortness of breath or wheezing) Qty: 6.7 2RF Ozempic 0.25 mg or 0.5 mg (2 mg/3 mL) pen injector 0.25 mg SUBCUT .week Qty: 3 0RF Rx Instructions: BMI 37.3% ergocalciferol (vitamin D2) 1,250 mcg (50,000 unit) capsule 1,250 mcg PO .weekly Qty: 4 2RF Discharge Orders: Discharge ED (Routine); Ordered 03/15/25 Ordered By: Ani Burden Referrals: Mallory Smith FNP-C [Primary Care Provider, Family Practice] Patient Instructions: Foot Sprain (ED), Patient Portal & Melonie Instructions Print Language: Moldovan Coding Level of Care Code ED 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
== END 2025-03-15 09:56 | disposition home or self-care (01) ==
PROVIDERS: Emergency Provider Physician Assistant; PCP Nurse Practitioner Family
DX: S93.601A Unspecified sprain of right foot, initial encounter (principal); F17.210 Nicotine dependence, cigarettes, uncomplicated; W01.0XXA Fall on same level from slipping, tripping and stumbling without subsequent striking against object, initial encounter
CPT/HCPCS: 73630; 99283

== ENCOUNTER → 2025-05-23 14:29 | Outpatient (BNVA) | payer MEDICAID, SELFPAY | PROVIDERS: PCP Nurse Practitioner; Visit Provider Nurse Practitioner | DX: N89.8 Other specified noninflammatory disorders of vagina (principal) | CPT/HCPCS: 87070; 87205 ==